=== PATIENT | male | born 1995 | race Hispanic/Latino ===

== ENCOUNTER 2025-07-18 10:37 | Emergency (ER) | payer SELFPAY ==
[2025-07-18] MEDS ORDERED: CEFAZOLIN 2 GM VIAL ONE (11:37)
[2025-07-18] MEDS ORDERED: Lidocaine 1% (PF) 30 ML VIAL ONE ×2 (14:28→18:13)
== END 2025-07-18 18:40 | disposition home or self-care (01) ==
LOC: CSHERS 10:37
DX: S62.630B Displaced fracture of distal phalanx of right index finger, initial encounter for open fracture (principal); W23.0XXA Caught, crushed, jammed, or pinched between moving objects, initial encounter; Z23 Encounter for immunization
CPT/HCPCS: 64450; 90471; 90715; 96365; J2003